=== PATIENT | female | born 1965 ===

== ENCOUNTER → 2018-08-31 21:11 | Outpatient (REF) | payer OTHER, SELFPAY ==
[2018-09-02 17:26] LABS: Glucose-6-Phosphate Dehydrogen 11.3 U/g Hgb (7.0-20.5)
== END ==
LOC: LAB 21:11
PROVIDERS: Visit Provider Naturopath
DX: D55.0 Anemia due to glucose-6-phosphate dehydrogenase [G6PD] deficiency (principal)
CPT/HCPCS: 82955